=== PATIENT | female | born 1970 | race Caucasian/White ===

== ENCOUNTER 2016-11-22 11:09 | Emergency (ER) | payer MEDICAID ==
[2016-11-22 11:22] VITALS: RESP 16; TEMP 97.7; O2SAT 97
--- NOTE | 2016-11-22 12:02 | EDPHY ---
H & P Time Seen by Provider: 11/22/16 11:51 HPI/ROS: CHIEF COMPLAINT: Pseudoseizure HISTORY OF PRESENT ILLNESS: The patient is a 46-year-old female, with history of pseudoseizures, brought in by EMS, presenting with a pseudoseizure episode. The patient had a pseudo-seizure today while at the pain management clinic. She suddenly appeared spacey and did not respond to verbal stimuli. She states she feels like her body is trapped, but is able to hear and understand what is happening in her surroundings. She currently feels fatigued. The patient has had full workup for this issue in the past and is currently followed by psychiatrist. Patients BGL during transport was normal. REVIEW OF SYSTEMS: A comprehensive 10 point review of systems is otherwise negative aside from elements mentioned in the history of present illness. Past Medical/Surgical History: Pseudoseizures Social History: Single. Lives in [place]. Smoking Status: Former smoker Physical Exam: General Appearance: Alert, pleasant Eyes: Pupils equal and round, no conjunctival pallor or injection ENT, Mouth: Mucous membranes moist Neck: Normal inspection Respiratory: Lungs are clear to auscultation Cardiovascular: Regular rate and rhythm Gastrointestinal: Abdomen is soft and non-tender Neurological: Alert, oriented x3, cranial nerves II through XII intact, motor 5 /5, sensory intact to light touch Skin: Warm and dry, no rash Extremities: Nontender, no pedal edema Psychiatric: Mood and affect normal Constitutional: Initial Vital Signs Temperature (C) 36.5 C 11/22/16 11:10 Heart Rate 82 11/22/16 11:10 Respiratory Rate 16 11/22/16 11:10 Blood Pressure 136/85 H 11/22/16 11:10 O2 Sat (%) 97 11/22/16 11:10 O2 Delivery Mode Room Air Allergies/Adverse Reactions: Penicillins Allergy (Verified 11/22/16 11:23) Sulfa (Sulfonamide Antibiotics) Allergy (Verified 11/22/16 11:23) Home Medications: Medication Instructions Recorded See List 11/22/16 Medical Decision Making ED Course/Re-evaluation: This patient presents after a pseudo-seizure. She is currently back to normal. I do not feel that further evaluation is indicated in this patient. She will follow up with her psychiatrist in the office. Departure - Departure Disposition: Home, Routine, Self-Care Clinical Impression: Pseudoseizure Condition: Good Instructions: Additional Information Additional Instructions: Please followup with your primary care physician. Referrals: [facility] [Other] - As per Instructions Report Scribed for: Jannet Alvarado Report Scribed by: Lian Motta Date of Report: 11/22/16 Time of Report: 11:55 Physician Review and Approval Statement: 11/22/16 11:55 Portions of this note were transcribed by a medical liaison. I personally performed the history, physical exam, and medical decision-making; and confirmed the accuracy of the information in the transcribed note.
[2016-11-22 12:12] VITALS: BP 117/92; PULSE 86
== END 2016-11-22 12:20 | disposition home or self-care (01) ==
DX: F44.5 Conversion disorder with seizures or convulsions (principal); Z87.891 Personal history of nicotine dependence